=== PATIENT | male | born 1940 | race Caucasian/White ===

== ENCOUNTER 2020-02-04 09:03 | Outpatient (CLI) | payer OTHER ==
[~2020-02-04 09:03] MED LIST: ATORVASTATIN CA10 MG; COZAAR25 MG; CYMBALTA20 MG; JANUMET 50-1,01 EACH
== END 2020-02-04 09:10 | disposition home or self-care (01) ==
LOC: SONOGRAMA 09:03
PROVIDERS: ATTEND Specialist
DX: R97.20 Elevated prostate specific antigen [PSA] (principal); N40.3 Nodular prostate with lower urinary tract symptoms